=== PATIENT | female | born 1985 | race Caucasian/White ===

== ENCOUNTER 2017-12-16 12:54 | Emergency (ER) | payer MEDICAID, OTHER ==
[~2017-12-16] VITALS: Ht 165.1 cm; Wt 125.0 kg
[~2017-12-16 12:54] MED LIST: ERYTOIN10 LEFT EYE; OMEP20TA93 PO
[2017-12-16 13:09] VITALS: BP 136/84; PULSE 96; RESP 20; TEMP 98.5; O2SAT 98
[2017-12-16 13:46] LABS: AUTOMATED NEUTROPHIL # 4.9 TH/MM3 (1.8-7.7); BASOPHIL % 0.5 % (0.0-2.0); EOSINOPHIL # 0.1 TH/MM3 (0-0.4); HEMATOCRIT 38.9 % (35.0-46.0); HEMOGLOBIN 13.1 GM/DL (11.6-15.3); LYMPH % 31.8 % (9.0-44.0); LYMPHOCYTE # 2.5 TH/MM3 (1.0-4.8); MEAN CELL VOLUME 77.4 FL (80.0-100.0); MEAN CORPUSCULAR HGB CONC 33.6 % (32.0-36.0); MEAN PLATELET VOLUME 7.5 FL (7.0-11.0); MONO % 4.5 % (0.0-8.0); MONOCYTE # 0.4 TH/MM3 (0-0.9); NEUT % 62.2 % (16.0-70.0); PLATELET COUNT 218 TH/MM3 (150-450); RED BLOOD COUNT 5.02 MIL/MM3 (4.00-5.30); WHITE BLOOD COUNT 7.9 TH/MM3 (4.0-11.0)
[2017-12-16 14:08] LABS: ALBUMIN 3.2 GM/DL (3.4-5.0); ALT (GPT) 30 U/L (10-53); AST (GOT) 14 U/L (15-37); BICARBONATE 26.3 MEQ/L (21.0-32.0); BLOOD UREA NITROGEN 10 MG/DL (7-18); CALCIUM 8.5 MG/DL (8.5-10.1); CHLORIDE 102 MEQ/L (98-107); CREATININE 0.54 MG/DL (0.50-1.00); GLOMERULAR FILTRATION RATE 132 ML/MIN (>89); GLUCOSE,RANDOM 296 MG/DL (74-106); SODIUM (NA) 138 MEQ/L (136-145)
[2017-12-16 14:11] LABS: ALKALINE PHOSPHATASE 104 U/L (45-117); TOTAL BILIRUBIN ADULT 0.4 MG/DL (0.2-1.0); TOTAL PROTEIN 6.9 GM/DL (6.4-8.2)
[2017-12-16] MEDS ORDERED: SODIUM CHLOR 0.9% 1000 ML INJ 1,000 ML IV ONE ×2 (14:11→20:45)
--- NOTE | 2017-12-16 14:20 | PD ---
HPI Chief Complaint: Dizziness Time Seen by Provider: 14:10 Travel History International Travel<30 days: No Contact w/Intl Traveler<30days: No Traveled to known affect area: No History of Present Illness HPI Patient comes emergency department complaining of near syncope that occurred while at work today. Patient reports that initial symptoms began while she was walking around the facility. 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 Patient reports associated headache. Denies any chest pain, shortness of breath, nausea, vomiting, loss change in bowel or bladder, excessive thirst, abdominal pain, or back pain. Patient denies anything like this happening in the past. Patient denies any known medical problems. Patient denies any family history of sudden or heart disease before age 40. PFSH Past Medical History Arthritis: No Asthma: No Blood Disorders: No Depression: No Heart Rhythm Problems: No Cardiovascular Problems: No High Cholesterol: No Chemotherapy: No Congestive Heart Failure: No COPD: No Cerebrovascular Accident: No Diabetes: No Diminished Hearing: No Endocrine: No GERD: Yes Glaucoma: No Genitourinary: No Hepatitis: No Hiatal Hernia: No Hypertension: No Immune Disorder: No Kidney Stones: No Musculoskeletal: No Psychiatric: No Reproductive: No Respiratory: No Migraines: No Myocardial Infarction: No Radiation Therapy: No Renal Failure: No Sickle Cell Disease: No Sleep Apnea: No Ulcer: No ?: Not LMP: n/a : 2 Para: 3 Tubal Ligation: Yes Past Surgical History Abdominal Surgery: Yes ( APPENDECTOMY) AICD: No Appendectomy: Yes Arteriovenous Shunt: No Cardiac Surgery: No Section: Yes Cholecystectomy: No Ear Surgery: No Endocrine Surgery: No Eye Surgery: No Genitourinary Surgery: No Gynecologic Surgery: Yes ( X2) Insulin Pump: No Joint Replacement: No Oral Surgery: No Pacemaker: No Thoracic Surgery: No Other Surgery: Yes (cyst removed) Social History Alcohol Use: No Tobacco Use: No Substance Use: No Allergies-Medications (Allergen,Severity, Reaction): Coded Allergies: amoxicillin (Verified Allergy, Severe, Anaphylaxis, 08/29/17) penicillin G (Verified Allergy, Severe, SWELLING THROAT, 08/29/17) Reported Meds & Prescriptions Reported Meds & Active Scripts Active Erythromycin Opth Oint 5 Mg/Gm Oint 1 Applic LEFT EYE QID 5 Days Reported Omeprazole 20 Mg Tab 20 Mg PO DAILY Review of Systems Except as stated in HPI: all other systems reviewed are Neg Physical Exam Narrative GENERAL: Well-developed, overly nourished, in no acute distress, and non-ill appearing. SKIN: Focused skin assessment warm and dry. HEAD: Atraumatic. Normocephalic. EYES: Pupils equal and round. EOMI. No scleral icterus. No injection or drainage. ENT: No nasal bleeding or discharge. Mucous membranes pink and moist. NECK: Trachea midline. Supple. No nuclear rigidity. CARDIOVASCULAR: Regular rate and rhythm. No murmur appreciated. RESPIRATORY: No accessory muscle use. No respiratory distress. Clear to auscultation. Breath sounds equal bilaterally. GASTROINTESTINAL: Abdomen soft, non-tender, nondistended, and no guarding. Hepatic and splenic margins not palpable. No pulsatile mass. MUSCULOSKELETAL: No obvious deformities. No clubbing. No cyanosis. No edema. Full range of motion. NEUROLOGICAL: Awake and alert. No obvious cranial nerve deficits. Motor grossly within normal limits. Normal speech. PSYCHIATRIC: Appropriate mood and affect; insight and judgment normal. Data Data Last Documented VS Vital Signs Date Time Temp Pulse Resp B/P (MAP) Pulse Ox O2 Delivery O2 Flow Rate FiO2 12/16/17 16:43 89 18 147/77 (100) 94 15 148/80 (102) 90 16 150/86 (107) 12/16/17 16:23 99 Room Air 12/16/17 13:09 98.5 Orders Orders Electrocardiogram (12/16/17 13:25) Complete Blood Count With Diff (12/16/17 13:25) Comprehensive Metabolic Panel (12/16/17 13:25) Iv Access Insert/Monitor (12/16/17 13:25) Act Partial Throm Time (Ptt) (12/16/17 14:11) Prothrombin Time / Inr (Pt) (12/16/17 14:11) Ecg Monitoring (12/16/17 14:11) Oximetry (12/16/17 14:11) Sodium Chlor 0.9% 1000 Ml Inj (Ns 1000 M (12/16/17 14:11) Diet Npo (12/16/17 Dinner) Lipase (12/16/17 14:11) Magnesium (Mg) (12/16/17 14:11) Beta Hydroxybutyrate (Acetone) (12/16/17 14:11) Urinalysis - C+S If Indicated (12/16/17 14:11) Chest, Single Ap (12/16/17 ) Arterial Blood Gas (Abg) (12/16/17 ) Ckmb (Isoenzyme) Profile (12/16/17 14:11) Troponin I (12/16/17 14:11) Ct Brain W/O Iv Contrast(Rout) (12/16/17 14:11) Orthostatic Vital Signs (12/16/17 15:02) Meclizine (Antivert) (12/16/17 15:45) Hemoglobin (Hgb) A1c (12/16/17 14:11) Acetaminophen (Tylenol) (12/16/17 16:15) Labs Laboratory Tests Test 12/16/17 13:27 12/16/17 14:58 White Blood Count 7.9 TH/MM3 Red Blood Count 5.02 MIL/MM3 Hemoglobin 13.1 GM/DL Hematocrit 38.9 % Mean Corpuscular Volume 77.4 FL Mean Corpuscular Hemoglobin 26.0 PG Mean Corpuscular Hemoglobin Concent 33.6 % Red Cell Distribution Width 15.0 % Platelet Count 218 TH/MM3 Mean Platelet Volume 7.5 FL Neutrophils (%) (Auto) 62.2 % Lymphocytes (%) (Auto) 31.8 % Monocytes (%) (Auto) 4.5 % Eosinophils (%) (Auto) 1.0 % Basophils (%) (Auto) 0.5 % Neutrophils # (Auto) 4.9 TH/MM3 Lymphocytes # (Auto) 2.5 TH/MM3 Monocytes # (Auto) 0.4 TH/MM3 Eosinophils # (Auto) 0.1 TH/MM3 Basophils # (Auto) 0.0 TH/MM3 CBC Comment DIFF FINAL Differential Comment Blood Urea Nitrogen 10 MG/DL Creatinine 0.54 MG/DL Random Glucose 296 MG/DL Total Protein 6.9 GM/DL Albumin 3.2 GM/DL Calcium Level 8.5 MG/DL Alkaline Phosphatase 104 U/L Aspartate Amino Transf (AST/SGOT) 14 U/L Alanine Aminotransferase (ALT/SGPT) 30 U/L Total Bilirubin 0.4 MG/DL Sodium Level 138 MEQ/L Potassium Level 3.9 MEQ/L Chloride Level 102 MEQ/L Carbon Dioxide Level 26.3 MEQ/L Anion Gap 10 MEQ/L Estimat Glomerular Filtration Rate 132 ML/MIN Magnesium Level 1.7 MG/DL Total Creatine Kinase 65 U/L Troponin I LESS THAN 0.02 NG/ML Lipase 82 U/L B-Hydroxybutyrate 0.35 MMOL/L Prothrombin Time 10.0 SEC Prothromb Time International Ratio 1.0 RATIO Activated Partial Thromboplast Time 24.3 SEC MDM Medical Decision Making Medical Screen Exam Complete: Yes Emergency Medical Condition: Yes Interpretation(s) EKG reviewed by Dr. Moore shows sinus rhythm ventricular rate of 92. No STEMI. Differential Diagnosis Acute coronary syndrome, CVA, peripheral vertigo, orthostatic hypertension, metabolic disturbance, UTI Narrative Course Patient was seen and examined. Initial laboratory radiological studies were ordered. Patient given IV fluid, IV Zofran, p.o. Tylenol, and meclizine. Patient signed out to Dr. Moore pending results. Please see his documentation for final diagnosis and disposition. Pablo Dominguez Dec 16, 2017 14:20
--- NOTE | 2017-12-16 14:56 | RADRPT ---
EXAM DATE/TIME: 12/16/2017 14:22 [facility] COMPARISON: No previous studies available for comparison. INDICATIONS : Dizziness. Hypertensive. MEDICAL HISTORY : Gastroesophageal reflux disease. SURGICAL HISTORY : Appendectomy. section. Tubal ligation. ENCOUNTER: Initial ACUITY: 1 day PAIN SCORE: 0/10 LOCATION: Bilateral chest FINDINGS: A single view of the chest demonstrates the lungs to be symmetrically hypoaerated characteristic of s ubmaximal inspiration without evidence of mass, infiltrate or effusion. The cardiomediastinal conto urs are unremarkable. Osseous structures are intact. CONCLUSION: The lungs are clear. Juan C Garcia MD on December 16, 2017 at 14:54 Board Certified Radiologist. This report was verified electronically.
[2017-12-16] MEDS ORDERED: MECLIZINE HCL 25 MG TAB PO ONE (15:45)
[2017-12-16 15:57] LABS: MAGNESIUM 1.7 MG/DL (1.5-2.5)
[2017-12-16 16:00] LABS: TROPONIN I LESS THAN 0.02 NG/ML (0.02-0.05)
[2017-12-16] MEDS ORDERED: ACETAMINOPHEN 325 MG TAB PO ONE (16:15)
[2017-12-16 16:23] VITALS: BP 135/80; PULSE 92; RESP 16; O2SAT 99
[2017-12-16 16:43] VITALS: BP_SYST 147; BP_SYST 148; BP_SYST 150; BP_DIAS 77; BP_DIAS 80; BP_DIAS 86; RESP 15; RESP 16; RESP 18
[2017-12-16 17:39] VITALS: BP 127/84; PULSE 90; RESP 20; O2SAT 96
--- NOTE | 2017-12-16 18:36 | PD ---
Data Data Last Documented VS Vital Signs Date Time Temp Pulse Resp B/P (MAP) Pulse Ox O2 Delivery O2 Flow Rate FiO2 12/16/17 17:39 90 20 127/84 (98) 96 Room Air 12/16/17 13:09 98.5 Orders Orders Electrocardiogram (12/16/17 13:25) Complete Blood Count With Diff (12/16/17 13:25) Comprehensive Metabolic Panel (12/16/17 13:25) Iv Access Insert/Monitor (12/16/17 13:25) Act Partial Throm Time (Ptt) (12/16/17 14:11) Prothrombin Time / Inr (Pt) (12/16/17 14:11) Ecg Monitoring (12/16/17 14:11) Oximetry (12/16/17 14:11) Sodium Chlor 0.9% 1000 Ml Inj (Ns 1000 M (12/16/17 14:11) Diet Npo (12/16/17 Dinner) Lipase (12/16/17 14:11) Magnesium (Mg) (12/16/17 14:11) Beta Hydroxybutyrate (Acetone) (12/16/17 14:11) Urinalysis - C+S If Indicated (12/16/17 14:11) Chest, Single Ap (12/16/17 ) Arterial Blood Gas (Abg) (12/16/17 ) Ckmb (Isoenzyme) Profile (12/16/17 14:11) Troponin I (12/16/17 14:11) Ct Brain W/O Iv Contrast(Rout) (12/16/17 14:11) Orthostatic Vital Signs (12/16/17 15:02) Meclizine (Antivert) (12/16/17 15:45) Hemoglobin (Hgb) A1c (12/16/17 14:11) Acetaminophen (Tylenol) (12/16/17 16:15) Cath For Specimen (12/16/17 17:35) Diphenhydramine Inj (Benadryl Inj) (12/16/17 18:45) Prochlorperazine Inj (Compazine Inj) (12/16/17 18:45) Urine Culture (12/16/17 16:41) Labs Laboratory Tests Test 12/16/17 13:27 12/16/17 14:58 12/16/17 16:41 White Blood Count 7.9 TH/MM3 Red Blood Count 5.02 MIL/MM3 Hemoglobin 13.1 GM/DL Hematocrit 38.9 % Mean Corpuscular Volume 77.4 FL Mean Corpuscular Hemoglobin 26.0 PG Mean Corpuscular Hemoglobin Concent 33.6 % Red Cell Distribution Width 15.0 % Platelet Count 218 TH/MM3 Mean Platelet Volume 7.5 FL Neutrophils (%) (Auto) 62.2 % Lymphocytes (%) (Auto) 31.8 % Monocytes (%) (Auto) 4.5 % Eosinophils (%) (Auto) 1.0 % Basophils (%) (Auto) 0.5 % Neutrophils # (Auto) 4.9 TH/MM3 Lymphocytes # (Auto) 2.5 TH/MM3 Monocytes # (Auto) 0.4 TH/MM3 Eosinophils # (Auto) 0.1 TH/MM3 Basophils # (Auto) 0.0 TH/MM3 CBC Comment DIFF FINAL Differential Comment Blood Urea Nitrogen 10 MG/DL Creatinine 0.54 MG/DL Random Glucose 296 MG/DL Total Protein 6.9 GM/DL Albumin 3.2 GM/DL Calcium Level 8.5 MG/DL Alkaline Phosphatase 104 U/L Aspartate Amino Transf (AST/SGOT) 14 U/L Alanine Aminotransferase (ALT/SGPT) 30 U/L Total Bilirubin 0.4 MG/DL Sodium Level 138 MEQ/L Potassium Level 3.9 MEQ/L Chloride Level 102 MEQ/L Carbon Dioxide Level 26.3 MEQ/L Anion Gap 10 MEQ/L Estimat Glomerular Filtration Rate 132 ML/MIN Magnesium Level 1.7 MG/DL Total Creatine Kinase 65 U/L Troponin I LESS THAN 0.02 NG/ML Lipase 82 U/L B-Hydroxybutyrate 0.35 MMOL/L Prothrombin Time 10.0 SEC Prothromb Time International Ratio 1.0 RATIO Activated Partial Thromboplast Time 24.3 SEC Urine Color YELLOW Urine Turbidity CLEAR Urine pH 5.0 Urine Specific [place] 1.033 Urine Protein NEG mg/dL Urine Glucose (UA) 1000 mg/dL Urine Ketones 40 mg/dL Urine Occult Blood NEG Urine Nitrite POS Urine Bilirubin NEG Urine Urobilinogen LESS THAN 2.0 MG/DL Urine Leukocyte Esterase SMALL Urine RBC 3 /hpf Urine WBC 11 /hpf Urine Squamous Epithelial Cells 2 /hpf Urine Amorphous Sediment RARE Urine Bacteria MOD /hpf Urine Mucus FEW /lpf Microscopic Urinalysis Comment CULTURE INDICATED MDM Supervised Visit with RAZIA: Yes Narrative Course I, Dr. Moore, have reviewed the advance practice practitioner's documentation and am in agreement, met with the patient face to face, made the diagnosis, and the medical decision making was done by me. *My assessment and Findings: Patient seen and examined by me in the care was assumed and the patient was moved to a medical pod at 1800. There is a 32-year- old female who had a dizzy episode today at work. She has had no presyncopal symptoms. She does have an elevated blood glucose today and appears as though is a new onset diabetic. Her labs are otherwise reassuring. She had no response to meclizine. Benadryl and Compazine been ordered for her mild headache. Waiting for a CAT scan of her head results and a UA. She appears well neurologically nonfocal and has no symptoms to warrant further workup at this time. The patient will be discussed with the oncoming provider at 1900 to follow-up the workup and disposition the patient appropriately. Diagnosis Primary Impression: Dizziness Referrals: [facility] Med/Other Pt SpecificInfo: Prescription(s) given Scripts Metformin (Metformin) 500 Mg Tab 500 MG PO BIDPC for Blood Sugar Management, #60 TAB 0 Refills Prov: Ivan Moore MD 12/16/17 Condition: Stable Ivan Moore MD Dec 16, 2017 18:36
[2017-12-16] MEDS ORDERED: METF500T PO (18:38)
[2017-12-16 18:41] LABS: AMORPHOUS SEDIMENT, URINE RARE; BACTERIA, URINE MOD /hpf; BILIRUBIN, URINE NEG (NEG); BLOOD, URINE NEG (NEG); GLUCOSE,URINE 1000 mg/dL (NEG); KETONE, URINE 40 mg/dL (NEG); MUCUS URINE FEW /lpf (OCC); NITRITE,URINE POS (NEG); SQUAMOUS EPITHELIAL CELL URINE 2 /hpf (0-5); URINE COLOR YELLOW (YELLW/STRAW); URINE LEUKOCYTE ESTERASE SMALL (NEG)
[2017-12-16] MEDS ORDERED: PROCHLORPERAZINE INJ 10 MG/2 ML VIAL IV PUSH ONE (18:45)
[2017-12-16] MEDS ORDERED: diphenhydrAMINE HCL 50 MG/ML VIAL IV PUSH ONE (18:45)
--- NOTE | 2017-12-16 19:53 | PD ---
Physical Exam Date Seen by Provider: Dec 16, 2017 Time Seen by Provider: 19:52 Narrative Accepted in transfer of care from Dr. Moore Data Data Last Documented VS Vital Signs Date Time Temp Pulse Resp B/P (MAP) Pulse Ox O2 Delivery O2 Flow Rate FiO2 12/16/17 17:39 90 20 127/84 (98) 96 Room Air 12/16/17 13:09 98.5 Orders Orders Electrocardiogram (12/16/17 13:25) Complete Blood Count With Diff (12/16/17 13:25) Comprehensive Metabolic Panel (12/16/17 13:25) Iv Access Insert/Monitor (12/16/17 13:25) Act Partial Throm Time (Ptt) (12/16/17 14:11) Prothrombin Time / Inr (Pt) (12/16/17 14:11) Ecg Monitoring (12/16/17 14:11) Oximetry (12/16/17 14:11) Sodium Chlor 0.9% 1000 Ml Inj (Ns 1000 M (12/16/17 14:11) Diet Npo (12/16/17 Dinner) Lipase (12/16/17 14:11) Magnesium (Mg) (12/16/17 14:11) Beta Hydroxybutyrate (Acetone) (12/16/17 14:11) Urinalysis - C+S If Indicated (12/16/17 14:11) Chest, Single Ap (12/16/17 ) Arterial Blood Gas (Abg) (12/16/17 ) Ckmb (Isoenzyme) Profile (12/16/17 14:11) Troponin I (12/16/17 14:11) Ct Brain W/O Iv Contrast(Rout) (12/16/17 14:11) Orthostatic Vital Signs (12/16/17 15:02) Meclizine (Antivert) (12/16/17 15:45) Hemoglobin (Hgb) A1c (12/16/17 14:11) Acetaminophen (Tylenol) (12/16/17 16:15) Cath For Specimen (12/16/17 17:35) Diphenhydramine Inj (Benadryl Inj) (12/16/17 18:45) Prochlorperazine Inj (Compazine Inj) (12/16/17 18:45) Urine Culture (12/16/17 16:41) Nitrofurantoin Monohyd Macrocr (Macrobid (12/16/17 20:45) Sodium Chlor 0.9% 1000 Ml Inj (Ns 1000 M (12/16/17 20:45) Ketorolac Inj (Toradol Inj) (12/16/17 21:30) Ed Discharge Order (12/16/17 21:21) Labs Laboratory Tests Test 12/16/17 13:27 12/16/17 14:58 12/16/17 16:41 White Blood Count 7.9 TH/MM3 Red Blood Count 5.02 MIL/MM3 Hemoglobin 13.1 GM/DL Hematocrit 38.9 % Mean Corpuscular Volume 77.4 FL Mean Corpuscular Hemoglobin 26.0 PG Mean Corpuscular Hemoglobin Concent 33.6 % Red Cell Distribution Width 15.0 % Platelet Count 218 TH/MM3 Mean Platelet Volume 7.5 FL Neutrophils (%) (Auto) 62.2 % Lymphocytes (%) (Auto) 31.8 % Monocytes (%) (Auto) 4.5 % Eosinophils (%) (Auto) 1.0 % Basophils (%) (Auto) 0.5 % Neutrophils # (Auto) 4.9 TH/MM3 Lymphocytes # (Auto) 2.5 TH/MM3 Monocytes # (Auto) 0.4 TH/MM3 Eosinophils # (Auto) 0.1 TH/MM3 Basophils # (Auto) 0.0 TH/MM3 CBC Comment DIFF FINAL Differential Comment Blood Urea Nitrogen 10 MG/DL Creatinine 0.54 MG/DL Random Glucose 296 MG/DL Total Protein 6.9 GM/DL Albumin 3.2 GM/DL Calcium Level 8.5 MG/DL Alkaline Phosphatase 104 U/L Aspartate Amino Transf (AST/SGOT) 14 U/L Alanine Aminotransferase (ALT/SGPT) 30 U/L Total Bilirubin 0.4 MG/DL Sodium Level 138 MEQ/L Potassium Level 3.9 MEQ/L Chloride Level 102 MEQ/L Carbon Dioxide Level 26.3 MEQ/L Anion Gap 10 MEQ/L Estimat Glomerular Filtration Rate 132 ML/MIN Magnesium Level 1.7 MG/DL Total Creatine Kinase 65 U/L Troponin I LESS THAN 0.02 NG/ML Lipase 82 U/L B-Hydroxybutyrate 0.35 MMOL/L Prothrombin Time 10.0 SEC Prothromb Time International Ratio 1.0 RATIO Activated Partial Thromboplast Time 24.3 SEC Urine Color YELLOW Urine Turbidity CLEAR Urine pH 5.0 Urine Specific [place] 1.033 Urine Protein NEG mg/dL Urine Glucose (UA) 1000 mg/dL Urine Ketones 40 mg/dL Urine Occult Blood NEG Urine Nitrite POS Urine Bilirubin NEG Urine Urobilinogen LESS THAN 2.0 MG/DL Urine Leukocyte Esterase SMALL Urine RBC 3 /hpf Urine WBC 11 /hpf Urine Squamous Epithelial Cells 2 /hpf Urine Amorphous Sediment RARE Urine Bacteria MOD /hpf Urine Mucus FEW /lpf Microscopic Urinalysis Comment CULTURE INDICATED MDM Medical Record Reviewed: Yes Supervised Visit with RAZIA: No Interpretation(s) Last Impressions Chest X-Ray 12/16/17 0000 Signed Impressions: Service Date/Time: Saturday, December 16, 2017 14:22 - CONCLUSION: The lungs are clear. Juan C Garcia MD CBC & BMP Diagram 12/16/17 13:27 Total Protein 6.9, Albumin 3.2 L, Calcium Level 8.5, Alkaline Phosphatase 104, Aspartate Amino Transf (AST/SGOT) 14 L, Alanine Aminotransferase (ALT/SGPT) 30, Total Bilirubin 0.4 Vital Signs Date Time Temp Pulse Resp B/P (MAP) Pulse Ox O2 Delivery O2 Flow Rate FiO2 12/16/17 17:39 90 20 127/84 (98) 96 Room Air 12/16/17 17:38 83 18 96 Room Air 12/16/17 16:43 89 18 147/77 (100) 94 15 148/80 (102) 90 16 150/86 (107) 12/16/17 16:23 92 16 135/80 (98) 99 Room Air 12/16/17 13:09 98.5 96 20 136/84 (101) 98 CT brain w/o: per reading radiologist "negative" per dr Medrano Differential Diagnosis Accepted in transfer of care from Dr. Moore; please refer to his dictation Narrative Course Accepted in transfer of care from Dr. Moore; follow up pending CT with plan for d /c home with RX metformin for hyperglycemia and antivert for vertigo Patient feeling clinically improved after IV fluids Benadryl and Compazine as well as Toradol for headache received Macrobid for UTI informed about elevated blood sugar without evidence of elevated bicarb or anion gap and negative serum acetone. Patient is encouraged to follow-up with primary care provider or local clinic. Patient given prescription for antibiotic meclizine Zofran as needed and metformin. Patient is given 1 day off of work Patient is encouraged to return to the emergency department for any concerns or change in condition CT brain noncontrast has been reviewed by radiologist Dr. Medrano and is reported as negative Patient is stable for outpatient management Diagnosis Primary Impression: Dizziness Additional Impressions: UTI (urinary tract infection) Hyperglycemia Referrals: [facility] Patient Instructions: General Instructions Departure Forms: Tests/Procedures, Work Release Special Instructions: no work x 1 day Additional Instruction: Increase fluid hydration Take acetaminophen/Tylenol every 4 hours for fever 100.4F or greater Take ibuprofen 800 mg as often as every 8 hours as needed for pain associated inflammation or for fever 100.4F or greater Complete course of antibiotic as prescribed Take Zofran as prescribed as needed for nausea and/or vomiting Take meclizine/Antivert as needed for dizziness No work 1 day Return to the emergency department for any concerns or change in condition Follow-up with primary care provider call office to schedule appointment Med/Other Pt SpecificInfo: Prescription(s) given Scripts Meclizine (Meclizine) 25 Mg Tab 25 MG PO Q6HR Y for VERTIGO, #10 TAB 0 Refills Prov: Cuca Chen MD 12/16/17 Ondansetron Odt (Zofran Odt) 4 Mg Tab 4 MG SL Q6HR Y for Nausea/Vomiting, #7 TAB 0 Refills Prov: Cuca Chen MD 12/16/17 Nitrofurantoin Monohydrate Macrocrystals (Macrobid) 100 Mg Cap 100 MG PO BID for Infection for 10 Days, #20 CAP 0 Refills Prov: Cuca Chen MD 12/16/17 Metformin (Metformin) 500 Mg Tab 500 MG PO BIDPC for Blood Sugar Management, #60 TAB 0 Refills Prov: Ivan Moore MD 12/16/17 Disposition: 01 DISCHARGE HOME Condition: Stable Cuca Chen MD Dec 16, 2017 19:53
[2017-12-16] MEDS ORDERED: NITROFURANTOIN MONOHYD MACROCR 100 MG CAP PO ONE (20:45)
[2017-12-16] MEDS ORDERED: MACR100C2 PO (21:23)
[2017-12-16] MEDS ORDERED: MECL-62 PO (21:23)
[2017-12-16] MEDS ORDERED: ZOFR4TAB3 SL (21:23)
[2017-12-16] MEDS ORDERED: KETOROLAC TROMETHAMINE 30 MG/ML (IVP) VIAL IV PUSH ONE (21:30)
--- NOTE | 2017-12-17 15:54 | RADRPT ---
EXAM DATE/TIME: 12/16/2017 15:15 [facility] COMPARISON: No previous studies available for comparison. INDICATIONS : Dizziness. RADIATION DOSE: 38.86 CTDIvol (mGy) MEDICAL HISTORY : None SURGICAL HISTORY : Tubal ligation. Appendectomy. section. ENCOUNTER: Initial ACUITY: 1 day PAIN SCALE: 0/10 LOCATION: cranial TECHNIQUE: Multiple contiguous axial images were obtained of the head. Using automated exposure control and adj ustment of the mA and/or kV according to patient size, radiation dose was kept as low as reasonably a chievable to obtain optimal diagnostic quality images. DICOM format image data is available electro nically for review and comparison. FINDINGS: CEREBRUM: The ventricles are normal for age. No evidence of midline shift, mass lesion, hemorrhage or acute in farction. No extra-axial fluid collections are seen. POSTERIOR FOSSA: The cerebellum and brainstem are intact. The 4th ventricle is midline. The cerebellopontine angle i s unremarkable. EXTRACRANIAL: The visualized portion of the orbits is intact. SKULL: The calvaria is intact. No evidence of skull fracture. CONCLUSION: 1. Negative noncontrast CT brain. Juan C Garcia MD on December 16, 2017 at 15:31 Board Certified Radiologist. This report was verified electronically.
--- NOTE | 2017-12-17 16:40 | EKG ---
Date Performed: 12/16/2017 Time Performed: 13:36:07 PTAGE: 32 years EKG: Sinus rhythm Since previous tracing, no significant change noted NORMAL ECG PREVIOUS TRACING : 09/11/2013 05.34 DOCTOR: Sukhi Lopez Interpretating Date/Time 12/17/2017 16:39:02
[2017-12-17 22:19] LABS: HEMOGLOBIN A1C 13.4 % (4.3-6.0)
== END 2017-12-16 21:55 | disposition home or self-care (01) ==
LOC: NEPC 12:54
DX: R42 Dizziness and giddiness (principal); N39.0 Urinary tract infection, site not specified; E11.65 Type 2 diabetes mellitus with hyperglycemia; K21.9 Gastro-esophageal reflux disease without esophagitis
CPT/HCPCS: 70450; 71045; 80053; 81001; 82010; 82550; 83036; 83690; 83735; 84484; 85025; 85610; 85730; 87077; 87086; 87186; 93005; 96361; 96374; 96375; 99285; J0780; J1200; J1885; J7030